=== PATIENT | female | born 2005 | race Two or more races ===

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

== ENCOUNTER 2023-08-29 11:17 | Outpatient (CLI) | payer MEDICAID ==
--- NOTE | 2023-08-29 13:18 | XRAY Report ---
PROCEDURE: Ankle 3+V LT INDICATIONS: L ANKLE AND FOOT PAIN TECHNIQUE: 3 views of the ankle were acquired. COMPARISON: 12/03/2022. FINDINGS: Bones: No fractures or dislocations. Ankle mortise is normally aligned. No suspicious bony lesions . There is a corticated ossification at the level of the tibial plafond medially which has developed since the previous study, but is likely long-standing. It likely represents sequelae of remote trauma . Soft tissues: No tibiotalar joint effusion. Achilles tendon appears normal. IMPRESSION: No acute bony abnormality. Reviewed by: Asaf Stock MD on 08/29/2023 1:17 PM PDT Approved by: Asaf Stock MD on 08/29/2023 1:17 PM PDT Station ID: [id number]
--- NOTE | 2023-08-29 13:20 | XRAY Report ---
PROCEDURE: Foot 3+V LT INDICATIONS: L ANKLE AND FOOT PAIN TECHNIQUE: 3 views of the foot were acquired. COMPARISON: Left ankle from today, left foot dated 12/03/2022. FINDINGS: Bones: No fractures or dislocations. No suspicious bony lesions. Soft tissues: No tibiotalar joint effusion. Achilles tendon appears normal. IMPRESSION: No acute bony abnormality. Reviewed by: Asaf Stock MD on 08/29/2023 1:18 PM PDT Approved by: Asaf Stock MD on 08/29/2023 1:18 PM PDT Station ID: [id number]
== END 2023-08-29 11:18 | disposition home or self-care (01) ==
LOC: DI.S 11:17
PROVIDERS: ATTEND Pediatrics
DX: M25.572 Pain in left ankle and joints of left foot (principal)

== ENCOUNTER 2023-09-21 20:32 | Emergency (ER) | payer MEDICAID ==
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
[2023-09-21 21:38] LABS: BILIRUBIN,URINE NEGATIVE (NEGATIVE); GLUCOSE, URINE (UA) NEGATIVE (NEGATIVE); KETONES,URINE (UA) NEGATIVE (NEGATIVE); LEUKOCYTE ESTERASE, URINE NEGATIVE (NEGATIVE); NITRITE,URINE NEGATIVE (NEGATIVE); OCCULT BLOOD,URINE NEGATIVE (NEGATIVE); PH,URINE 5.5 PH (5.0-7.5); PROTEIN,URINE 30 mg/dL (NEGATIVE); UROBILINOGEN,URINE 0.2 (NORMAL) E.U./dL (NORMAL)
[2023-09-21 21:40] LABS: CLARITY,URINE CLEAR (CLEAR); HCG UR QUAL NEGATIVE
[2023-09-21 21:45] LABS: BASOPHILS # (AUTO) 0.1 10^3/uL (0.0-0.1); BASOPHILS % (AUTO) 0.8 %; EOSINOPHILS # (AUTO) 0.1 10^3/uL (0.0-0.7); EOSINOPHILS % (AUTO) 1.4 %; HCT - HEMATOCRIT 42.8 % (37.0-47.0); HGB - HEMOGLOBIN 12.9 g/dL (12.0-16.0); LYMPHOCYTES # (AUTO) 2.4 10^3/uL (1.5-3.5); MEAN CORPUSCULAR HEMOGLOBIN 23.7 pg (27.0-31.0); MEAN CORPUSCULAR HGB CONC 30.1 g/dL (32.0-36.0); MEAN CORPUSCULAR VOLUME 78.5 fL (81.0-99.0); MEAN PLATELET VOLUME 9.2 fL (7.9-10.8); MONOCYTES # (AUTO) 0.7 10^3/uL (0.0-1.0); MONOCYTES % (AUTO) 7.1 %; NEUTROPHILS % (AUTO) 64.4 %; PLT - PLATELET COUNT 432 10^3/uL (130-450); RED BLOOD COUNT 5.45 10^6/uL (4.20-5.40); WHITE BLOOD COUNT 9.3 x10^3/uL (4.8-10.8)
[2023-09-21 21:46] LABS: BACTERIA,URINE Few /HPF (None Seen); CASTS, URINE 0-2 Hyaline Casts /LPF; RBC,URINE 0-5 /HPF (0-5); SQUAMOUS EPITHELIAL CELL,UR FEW Squamous (<= Few); WBC,URINE 0-3 /HPF (0-5)
[2023-09-21 21:48] LABS: AMPHETAMINE SCREEN,URINE NEGATIVE (NEGATIVE); COCAINE SCREEN URINE NEGATIVE (NEGATIVE); METHAMPHETAMINES SCREEN, URINE NEGATIVE (NEGATIVE); OPIATE SCREEN, URINE NEGATIVE (NEGATIVE); THC CANNABINOID SCREEN, URINE NEGATIVE (NEGATIVE)
[2023-09-21 21:49] LABS: BARBITURATE SCREEN,UR NEGATIVE (NEGATIVE); BENZODIAZEPINES SCREEN, URINE NEGATIVE (NEGATIVE); BUPRENORPHINE SCREEN, URINE NEGATIVE (NEGATIVE); METHADONE SCREEN, URINE NEGATIVE (NEGATIVE); OXYCODONE SCREEN, URINE NEGATIVE (NEGATIVE); TRICYCLIC ANTIDEPRESSANT,URINE NEGATIVE (NEGATIVE)
[2023-09-21 22:03] LABS: ALBUMIN 4.4 g/dL (3.2-5.5); ALBUMIN/GLOBULIN RATIO 1.2 (1.0-2.2); ALKALINE PHOSPHATASE 58 IU/L (42-121); ALT ALANINE AMINOTRANSFERASE 18 IU/L (10-60); AST ASPARTATE AMINOTRANSFERASE 17 IU/L (10-42); BILIRUBIN,TOTAL 0.4 mg/dL (0.2-1.0); BUN - BLOOD UREA NITROGEN 14 mg/dL (6-20); CALCIUM 10.5 mg/dL (8.5-10.3); CARBON DIOXIDE - CO2 28 mmol/L (21-32); CHLORIDE 100 mmol/L (101-111); CK- CREATINE KINASE 78 IU/L (30-223); CREATININE 0.6 mg/dL (0.6-1.3); ETOH - ETHANOL < 10.0 mg/dL; GFR - MDRD 127 (>89); GLUCOSE 142 mg/dL (74-104); LIPASE 15 U/L (11-82); MAGNESIUM 1.7 mg/dL (1.7-2.3); POTASSIUM 3.7 mmol/L (3.5-4.5); SODIUM 136 mmol/L (135-145); TOTAL PROTEIN 8.1 g/dL (6.4-8.9)
[2023-09-21 22:07] LABS: ACETAMINOPHEN < 0.1 ug/mL; SALICYLATE < 1.5 mg/dL
[2023-09-21 22:15] LABS: THYROID STIMULATING HORMONE 3.79 uIU/mL (0.34-5.60)
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
[2023-09-22 09:01] VITALS: BP 143/96; O2SAT 100
--- NOTE | 2023-09-22 12:22 | ED Physician Documentation ---
ED Addendum - Addendum Addendum: 09/22/23 12:21 The patient is doing well this morning. No particular complaints. Nursing notes and nursing direct verbal did not have any problems with the patient. We are still awaiting placement for the patient. Calm and in good demeanor here.
== END 2023-09-22 18:11 | disposition home or self-care (01) ==
LOC: ED 20:32
DX: R45.850 Homicidal ideations (principal); F31.9 Bipolar disorder, unspecified; F41.9 Anxiety disorder, unspecified; F39 Unspecified mood [affective] disorder; Z79.899 Other long term (current) drug therapy; Z75.1 Person awaiting admission to adequate facility elsewhere
CPT/HCPCS: 36415; 80053; 80143; 80179; 80306; 81001; 81025; 82077; 82550; 83690; 83735; 84443; 85025; 87635; 99283; G0425; Q3014; 81003; 87086

== ENCOUNTER 2023-12-17 20:39 | Outpatient (CLI) | payer MEDICAID | END 2023-12-17 23:59 | disposition EMS.NT | LOC: EMS 20:39 | DX: F41.9 Anxiety disorder, unspecified (principal); Z63.8 Other specified problems related to primary support group ==